=== PATIENT | female | born 1960 | race Caucasian/White ===

== ENCOUNTER → 2020-09-25 | Outpatient (CLI) | payer BC ==
[2020-09-25 08:15] LABS: Albumin 3.9 g/dL (3.4-5.0); BUN/Creatinine Ratio 20.2; Calcium 9.6 mg/dL (8.5-10.1); Potassium 4.1 mmol/L (3.5-5.1)
[2020-09-25 08:27] LABS: Bilirubin, Total 0.4 mg/dL (0.2-1.0); Total Protein 7.6 g/dL (6.4-8.2)
== END | disposition home or self-care (01) ==
LOC: LAB 07:37
DX: E78.5 Hyperlipidemia, unspecified (principal); R79.9 Abnormal finding of blood chemistry, unspecified
CPT/HCPCS: 36415; 80053; 80061; 82550